=== PATIENT | male | born 1990 | race African-American/Black ===

== ENCOUNTER 2021-06-04 21:19 | Inpatient (IN) | payer MEDICAID, OTHER ==
[~2021-06-04] VITALS: Ht 177.8 cm; Wt 67.5 kg
[2021-06-04] MEDS ORDERED: SODIUM CHLORIDE 0.9% 1,000 ML IV ONE (22:15)
[2021-06-04] MEDS ORDERED: THIAMINE 100mg/ml INJ (200mg/2ml VIAL) IV ONE (22:15)
[2021-06-04 22:31] LABS: Basophils # (auto) 0.1 10 ^3/uL (0-0.2); Eosinophils # (auto) 0.1 10 ^3/uL (0-0.8); Neutrophils # (auto) 2.5 10 ^3/uL (1.6-8.6)
[2021-06-04 22:34] LABS: Basophils % (auto) 1.4 % (0.0-2.0); Eosinophils % (auto) 1.8 % (0.0-7.0); Hematocrit 36.5 % (41.0-53.0); Hemoglobin 11.7 g/dL (13.5-17.5); Lymphocytes # (auto) 1.9 10 ^3/uL (0.4-5.4); Lymphocytes % (auto) 38.6 % (10.0-50.0); Mean Corpuscular Hemoglobin 26.1 pg (28.0-32.0); Mean Corpuscular Volume 81.6 fL (80.0-100.0); Monocytes # (auto) 0.4 10 ^3/uL (0-1.3); Neutrophils % (auto) 50.2 % (37.0-80.0); Nucleated Red Blood Cells % 0.2 %; Red Blood Cells 4.48 10^6/uL (4.5-5.90); White Blood Cell 4.9 10^3/uL (4.4-10.8)
[2021-06-04 22:45] LABS: Red Cell Distribution Width 22.1 % (11.8-14.3)
[2021-06-04 22:47] LABS: Albumin 3.4 g/dL (3.4-5.0); Calcium 8.2 mg/dL (8.5-10.1); Potassium 4.3 mmol/L (3.5-5.1)
[2021-06-04 22:49] LABS: BUN/Creatinine Ratio 11.3
[2021-06-04 22:53] LABS: Bilirubin, Total 0.8 mg/dL (0.2-1.0); Total Protein 7.5 g/dL (6.4-8.2)
[2021-06-05] MEDS ORDERED: IOHEXOL 350 MG/ML 100ML IJ ONE (01:29)
[2021-06-05] MEDS ORDERED: ENOXAPARIN SOD 80 MG/0.8ML SYRINGE SC ONE ×2 (01:30→03:00)
[2021-06-05] MEDS ORDERED: KETOROLAC TROMETH 30 MG/ML 1ML VIAL IV ONE (03:45)
[2021-06-05 05:27] LABS: Urine Bacteria NONE SEEN /hpf (None Seen); Urine Blood Negative /uL (Negative); Urine Hyaline Cast FEW /lpf (0 - 2); Urine Specific Gravity 1.034 (1.001-1.035); Urine WBC 1 /hpf (0 - 3)
[2021-06-05] MEDS ORDERED: ONDANSETRON HCL 4 MG/2 ML VIAL IV PRN (09:30)
[2021-06-05] MEDS ORDERED: DOCUSATE SOD 100 MG CAP PO PRN (09:30)
[2021-06-05] MEDS ORDERED: NITROGLYCERIN 0.4 MG SL TAB SL PRN (09:30)
[2021-06-05] MEDS ORDERED: SODIUM CHLORIDE 0.9% 1,000 ML IV ONE (09:45)
[2021-06-05] MEDS ORDERED: THIAMINE HCL 100 MG TAB PO ONE (09:45)
[2021-06-05] MEDS: MULTIPLE VITAMIN TAB PO SCH (10:00)
[2021-06-05] MEDS: PANTOPRAZOLE 40 MG TAB PO SCH (10:05)
[2021-06-05] MEDS: FOLIC ACID 1 MG TAB PO SCH (10:05)
[2021-06-05] MEDS: LORazepam 2MG/ML-1ML VIAL IV PRN (10:06)
[2021-06-05 11:27] LABS: Eosinophils # (auto) 0.1 10 ^3/uL (0-0.8); Hemoglobin 11.2 g/dL (13.5-17.5); Mean Corpuscular Hemoglobin 25.8 pg (28.0-32.0); Monocytes # (auto) 0.4 10 ^3/uL (0-1.3); Nucleated Red Blood Cells % 0.3 %; Red Blood Cells 4.33 10^6/uL (4.5-5.90); Red Cell Distribution Width 22.5 % (11.8-14.3); White Blood Cell 4.9 10^3/uL (4.4-10.8)
[2021-06-05 11:28] LABS: Basophils # (auto) 0.1 10 ^3/uL (0-0.2); Basophils % (auto) 1.5 % (0.0-2.0); Lymphocytes # (auto) 1.6 10 ^3/uL (0.4-5.4); Lymphocytes % (auto) 31.9 % (10.0-50.0); Monocytes % (auto) 8.7 % (0.0-12.0); Neutrophils # (auto) 2.8 10 ^3/uL (1.6-8.6); Neutrophils % (auto) 56.9 % (37.0-80.0)
[2021-06-05 13:00] VITALS: BP 105/86
[2021-06-05 13:17] VITALS: BP 107/73
[2021-06-05 14:32] LABS: BUN/Creatinine Ratio 12.9; Calcium 8.5 mg/dL (8.5-10.1); Potassium 4.7 mmol/L (3.5-5.1)
[2021-06-05 16:49] VITALS: BP 108/82
[2021-06-05 22:00] VITALS: BP 102/80
[2021-06-06 05:00] VITALS: BP 104/66
[2021-06-06] MEDS: PANTOPRAZOLE 40 MG TAB PO SCH (08:29)
[2021-06-06] MEDS: MULTIPLE VITAMIN TAB PO SCH (08:29)
[2021-06-06] MEDS: FOLIC ACID 1 MG TAB PO SCH (08:29)
[2021-06-06] MEDS: HYDROcodone-ACET 5/325MG TAB PO PRN (08:30)
[2021-06-06] MEDS: LORazepam 2MG/ML-1ML VIAL IV PRN ×3 (08:31→21:29)
[2021-06-06 08:47] VITALS: BP 108/71
[2021-06-06 13:06] VITALS: BP 101/72
[2021-06-06 17:00] VITALS: BP 98/70
[2021-06-06 21:29] VITALS: BP 109/79
[2021-06-06 22:00] VITALS: BP 98/77
[2021-06-07 05:00] VITALS: BP 99/70
[2021-06-07 09:00] VITALS: BP 109/71
[2021-06-07] MEDS: FOLIC ACID 1 MG TAB PO SCH (09:17)
[2021-06-07] MEDS: MULTIPLE VITAMIN TAB PO SCH (09:17)
[2021-06-07] MEDS: PANTOPRAZOLE 40 MG TAB PO SCH (09:17)
[2021-06-07 09:23] LABS: Basophils # (auto) 0.1 10 ^3/uL (0-0.2); Eosinophils # (auto) 0.1 10 ^3/uL (0-0.8); Hemoglobin 11.6 g/dL (13.5-17.5); Monocytes # (auto) 0.4 10 ^3/uL (0-1.3); Neutrophils % (auto) 58.9 % (37.0-80.0); Nucleated Red Blood Cells % 0.5 %; Red Blood Cells 4.45 10^6/uL (4.5-5.90); Red Cell Distribution Width 21.9 % (11.8-14.3)
[2021-06-07 09:25] LABS: Basophils % (auto) 1.3 % (0.0-2.0); Eosinophils % (auto) 1.5 % (0.0-7.0); Hematocrit 36.7 % (41.0-53.0); Lymphocytes # (auto) 1.2 10 ^3/uL (0.4-5.4); Lymphocytes % (auto) 28.8 % (10.0-50.0); Mean Corpuscular Hemoglobin 26.2 pg (28.0-32.0); Mean Corpuscular Hgb Conc. 31.7 g/dL (32.0-36.0); Mean Corpuscular Volume 82.5 fL (80.0-100.0); Monocytes % (auto) 9.5 % (0.0-12.0); Neutrophils # (auto) 2.5 10 ^3/uL (1.6-8.6); White Blood Cell 4.2 10^3/uL (4.4-10.8)
[2021-06-07] MEDS: HYDROcodone-ACET 5/325MG TAB PO PRN (09:35)
[2021-06-07 09:41] LABS: Albumin 3.2 g/dL (3.4-5.0); Calcium 8.7 mg/dL (8.5-10.1); Potassium 4.6 mmol/L (3.5-5.1)
[2021-06-07 09:45] LABS: BUN/Creatinine Ratio 20.3; Bilirubin, Total 0.9 mg/dL (0.2-1.0); Total Protein 7.1 g/dL (6.4-8.2)
[2021-06-07 13:00] VITALS: BP 108/73
[2021-06-07] MEDS ORDERED: chlordiazePOXIDE HCL 5 MG CAP PO PRN (13:15)
[2021-06-07 13:20] LABS: Cholesterol 88 mg/dL (< 200); HDL Cholesterol 36 mg/dL (40-59); LDL Cholesterol 52 mg/dL (< 100); Triglycerides 54 mg/dL (< 150)
[2021-06-07] MEDS: SODIUM CHLORIDE 0.9% 1,000 ML IV SCH ×2 (14:03→21:46)
[2021-06-07] MEDS: chlordiazePOXIDE HCL 5 MG CAP PO PRN (17:34)
[2021-06-07] MEDS: ENOXAPARIN SOD 80 MG/0.8ML SYRINGE SC SCH (17:35)
[2021-06-07 18:15] VITALS: BP 103/75
[2021-06-07 22:00] VITALS: BP 108/72
[2021-06-08] MEDS: ENOXAPARIN SOD 80 MG/0.8ML SYRINGE SC SCH ×2 (04:38→17:10)
[2021-06-08 05:00] VITALS: BP 107/67
[2021-06-08] MEDS: chlordiazePOXIDE HCL 5 MG CAP PO PRN ×3 (05:04→17:11)
[2021-06-08] MEDS: SODIUM CHLORIDE 0.9% 1,000 ML IV SCH ×3 (05:19→21:54)
[2021-06-08 09:00] VITALS: BP 100/65
[2021-06-08] MEDS: FOLIC ACID 1 MG TAB PO SCH (09:26)
[2021-06-08] MEDS: CARVEDILOL 3.125 MG TAB PO SCH ×2 (09:27→21:53)
[2021-06-08] MEDS: MULTIPLE VITAMIN TAB PO SCH (09:27)
[2021-06-08] MEDS: PANTOPRAZOLE 40 MG TAB PO SCH (09:27)
[2021-06-08 13:14] VITALS: BP 99/67
[2021-06-08 17:00] VITALS: BP 105/67
[2021-06-08 21:45] VITALS: BP 98/68
[2021-06-09] MEDS: chlordiazePOXIDE HCL 5 MG CAP PO PRN ×3 (00:24→18:00)
[2021-06-09] MEDS: ENOXAPARIN SOD 80 MG/0.8ML SYRINGE SC SCH ×2 (04:45→21:35)
[2021-06-09] MEDS: SODIUM CHLORIDE 0.9% 1,000 ML IV SCH (05:15)
[2021-06-09 09:00] VITALS: BP 100/61
[2021-06-09] MEDS: FOLIC ACID 1 MG TAB PO SCH (09:23)
[2021-06-09] MEDS: CARVEDILOL 3.125 MG TAB PO SCH ×2 (09:23→21:34)
[2021-06-09] MEDS: MULTIPLE VITAMIN TAB PO SCH (09:24)
[2021-06-09] MEDS: PANTOPRAZOLE 40 MG TAB PO SCH (09:24)
[2021-06-09] MEDS ORDERED: LAMO100T44 PO (12:53)
[2021-06-09] MEDS ORDERED: MEGE40TA4 PO (12:53)
[2021-06-09] MEDS ORDERED: SPIR25TA8 PO (12:53)
[2021-06-09] MEDS ORDERED: FUR20T PO (12:53)
[2021-06-09 13:00] VITALS: BP 105/78
[2021-06-09] MEDS ORDERED: diphenhdrAMINE HCL 25 MG CAP PO PRN (13:00)
[2021-06-09] MEDS: SPIRONOLACTONE 25 MG TAB PO SCH (14:09)
[2021-06-09] MEDS: FUROSEMIDE 20 MG TAB PO SCH (14:13)
[2021-06-09] MEDS: lamoTRIgine 100 MG TAB PO SCH (14:13)
[2021-06-09 17:00] VITALS: BP 115/65
[2021-06-09] MEDS ORDERED: RIVAROXABAN 20 MG TAB PO SCH (18:00)
[2021-06-09] MEDS ORDERED: ENOXAPARIN SOD 100 MG/1 ML SYRINGE SC SCH (18:00)
[2021-06-09] MEDS: HYDROcodone-ACET 5/325MG TAB PO PRN (20:35)
[2021-06-09] MEDS: MEGESTROL ACETATE 20 MG TAB PO SCH (21:34)
[2021-06-09 22:00] VITALS: BP 107/76
[2021-06-10 05:00] VITALS: BP 99/62
[2021-06-10] MEDS: MEGESTROL ACETATE 20 MG TAB PO SCH ×4 (06:12→22:30)
[2021-06-10 09:00] VITALS: BP 112/65
[2021-06-10] MEDS: lamoTRIgine 100 MG TAB PO SCH (10:00)
[2021-06-10] MEDS: CARVEDILOL 3.125 MG TAB PO SCH ×2 (10:31→22:30)
[2021-06-10] MEDS: FOLIC ACID 1 MG TAB PO SCH (10:32)
[2021-06-10] MEDS: MULTIPLE VITAMIN TAB PO SCH (10:32)
[2021-06-10] MEDS: FUROSEMIDE 20 MG TAB PO SCH (10:32)
[2021-06-10] MEDS: SPIRONOLACTONE 25 MG TAB PO SCH (10:32)
[2021-06-10] MEDS: PANTOPRAZOLE 40 MG TAB PO SCH (10:32)
[2021-06-10] MEDS: chlordiazePOXIDE HCL 5 MG CAP PO PRN ×2 (10:33→20:41)
[2021-06-10] MEDS: ENOXAPARIN SOD 80 MG/0.8ML SYRINGE SC SCH ×2 (10:33→22:29)
[2021-06-10 13:00] VITALS: BP 105/77
[2021-06-10] MEDS ORDERED: CARISOPRODOL 350 MG TAB PO PRN (15:00)
[2021-06-10] MEDS: LORazepam 0.5 MG TAB PO PRN (16:20)
[2021-06-10 22:12] VITALS: BP 105/69
[2021-06-10] MEDS: traZODone HCL 50 MG TAB PO SCH (22:31)
[2021-06-11] VITALS (10 sets, daily range): BP systolic 98–113; BP diastolic 57–83
[2021-06-11 05:56] LABS: Basophils # (auto) 0.1 10 ^3/uL (0-0.2); Basophils % (auto) 1.3 % (0.0-2.0); Eosinophils # (auto) 0.1 10 ^3/uL (0-0.8); Eosinophils % (auto) 1.9 % (0.0-7.0); Hemoglobin 10.7 g/dL (13.5-17.5); Lymphocytes # (auto) 1.9 10 ^3/uL (0.4-5.4); Lymphocytes % (auto) 48.5 % (10.0-50.0); Mean Corpuscular Hgb Conc. 32.3 g/dL (32.0-36.0); Mean Corpuscular Volume 80.5 fL (80.0-100.0); Monocytes # (auto) 0.5 10 ^3/uL (0-1.3); Monocytes % (auto) 13.6 % (0.0-12.0); Neutrophils # (auto) 1.4 10 ^3/uL (1.6-8.6); Neutrophils % (auto) 34.7 % (37.0-80.0); Nucleated Red Blood Cells % 0.3 %; White Blood Cell 3.9 10^3/uL (4.4-10.8)
[2021-06-11 05:57] LABS: Red Cell Distribution Width 22.3 % (11.8-14.3)
[2021-06-11] MEDS: MEGESTROL ACETATE 20 MG TAB PO SCH ×4 (06:00→22:04)
[2021-06-11 06:04] LABS: INR 1.35 (0.9-1.15); Partial Thromboplastin Time 36.6 sec (23.6-33.0)
[2021-06-11 06:17] LABS: Potassium 3.6 mmol/L (3.5-5.1)
[2021-06-11 06:30] LABS: Albumin 2.9 g/dL (3.4-5.0); Bilirubin, Total 0.8 mg/dL (0.2-1.0); Calcium 8.3 mg/dL (8.5-10.1); Total Protein 6.1 g/dL (6.4-8.2)
[2021-06-11] MEDS ORDERED: VERAPAMIL 2.5MG/ML INJ 2ML VIAL IV ONE (08:21)
[2021-06-11] MEDS ORDERED: HEPARIN SODIUM (PORCINE) 5000 UNITS/ML 1ML VIAL ONE (08:21)
[2021-06-11] MEDS ORDERED: ANGIOMAX 250 MG VIAL IV ONE (08:21)
[2021-06-11] MEDS ORDERED: fentaNYL CITRATE 100 MCG/2 ML VL ONE ×2 (08:21→09:29)
[2021-06-11] MEDS ORDERED: SODIUM CHL 0.9% 0 ML ONE (08:22)
[2021-06-11] MEDS ORDERED: MIDAZOLAM HCL 2MG/2ML 2ml VIAL (1mg/ml) ONE (08:22)
[2021-06-11] MEDS ORDERED: IODIXANOL 320MG/ML 100ML BTL IV ONE (08:22)
[2021-06-11] MEDS ORDERED: LIDOCAINE 2%HCL (LOCAL ANESTH.) INJ 10ml MDV ONE (08:22)
[2021-06-11] MEDS ORDERED: fentaNYL CITRATE 100 MCG/2 ML VL IV ONE (09:30)
[2021-06-11] MEDS: FOLIC ACID 1 MG TAB PO SCH (10:56)
[2021-06-11] MEDS: PANTOPRAZOLE 40 MG TAB PO SCH (10:56)
[2021-06-11] MEDS: SPIRONOLACTONE 25 MG TAB PO SCH (10:56)
[2021-06-11] MEDS: CARVEDILOL 3.125 MG TAB PO SCH ×2 (10:57→22:04)
[2021-06-11] MEDS: FUROSEMIDE 20 MG TAB PO SCH (10:57)
[2021-06-11] MEDS: MULTIPLE VITAMIN TAB PO SCH (10:57)
[2021-06-11] MEDS: HYDROcodone-ACET 5/325MG TAB PO PRN ×2 (16:48→22:05)
[2021-06-11] MEDS: RIVAROXABAN 20 MG TAB PO SCH (17:33)
[2021-06-11] MEDS: traZODone HCL 50 MG TAB PO SCH (22:04)
[2021-06-12 05:00] VITALS: BP 101/56
[2021-06-12] MEDS: MEGESTROL ACETATE 20 MG TAB PO SCH ×2 (06:47→11:55)
[2021-06-12 09:00] VITALS: BP 108/66
[2021-06-12] MEDS: MULTIPLE VITAMIN TAB PO SCH (09:27)
[2021-06-12] MEDS: PANTOPRAZOLE 40 MG TAB PO SCH (09:28)
[2021-06-12] MEDS: FOLIC ACID 1 MG TAB PO SCH (09:28)
[2021-06-12] MEDS: FUROSEMIDE 20 MG TAB PO SCH (09:29)
[2021-06-12] MEDS: SPIRONOLACTONE 25 MG TAB PO SCH (09:29)
[2021-06-12] MEDS: CARVEDILOL 3.125 MG TAB PO SCH ×2 (09:30→21:36)
[2021-06-12] MEDS: LORazepam 0.5 MG TAB PO PRN (09:31)
[2021-06-12 11:44] LABS: Albumin 3.2 g/dL (3.4-5.0); Calcium 8.6 mg/dL (8.5-10.1)
[2021-06-12 11:48] LABS: BUN/Creatinine Ratio 12.9; Bilirubin, Total 0.7 mg/dL (0.2-1.0); Total Protein 7.3 g/dL (6.4-8.2)
[2021-06-12 12:51] VITALS: BP 105/67
[2021-06-12] MEDS: chlordiazePOXIDE HCL 5 MG CAP PO PRN (12:56)
[2021-06-12 17:00] VITALS: BP 94/65
[2021-06-12] MEDS ORDERED: CAR3125T OR (18:02)
[2021-06-12] MEDS ORDERED: LORA0.5T20 GT (18:02)
[2021-06-12] MEDS ORDERED: CHL10C PO (18:02)
[2021-06-12] MEDS ORDERED: PANT40TA2 PO (18:02)
[2021-06-12] MEDS ORDERED: RIVA20TA PO (18:02)
[2021-06-12] MEDS ORDERED: CARI250T PO (18:02)
[2021-06-12] MEDS: RIVAROXABAN 20 MG TAB PO SCH (18:13)
[2021-06-12] MEDS: traZODone HCL 50 MG TAB PO SCH (21:36)
[2021-06-12] MEDS: MEGESTROL ACET 400MG/10ML ORAL SUSP PO SCH (21:37)
[2021-06-12 22:00] VITALS: BP 91/65
[2021-06-13 05:00] VITALS: BP 101/69
[2021-06-13 09:07] VITALS: BP 104/65
[2021-06-13] MEDS: FOLIC ACID 1 MG TAB PO SCH (10:08)
[2021-06-13] MEDS: MULTIPLE VITAMIN TAB PO SCH (10:08)
[2021-06-13] MEDS: FUROSEMIDE 20 MG TAB PO SCH (10:09)
[2021-06-13] MEDS: PANTOPRAZOLE 40 MG TAB PO SCH (10:09)
[2021-06-13] MEDS: CARVEDILOL 3.125 MG TAB PO SCH ×2 (10:09→21:48)
[2021-06-13] MEDS: SPIRONOLACTONE 25 MG TAB PO SCH (10:09)
[2021-06-13] MEDS: MEGESTROL ACET 400MG/10ML ORAL SUSP PO SCH ×2 (10:10→21:37)
[2021-06-13] MEDS: LORazepam 0.5 MG TAB PO PRN (10:37)
[2021-06-13 13:00] VITALS: BP 101/71
[2021-06-13 17:00] VITALS: BP 96/64
[2021-06-13] MEDS: RIVAROXABAN 20 MG TAB PO SCH (17:40)
[2021-06-13] MEDS: traZODone HCL 50 MG TAB PO SCH (21:35)
[2021-06-13 22:00] VITALS: BP 96/70
[2021-06-14 05:00] VITALS: BP 103/71
[2021-06-14 09:00] VITALS: BP 104/76
[2021-06-14 11:15] VITALS: BP 104/76
[2021-06-14] MEDS: MULTIPLE VITAMIN TAB PO SCH (11:30)
[2021-06-14] MEDS: LORazepam 0.5 MG TAB PO PRN (11:30)
[2021-06-14] MEDS: PANTOPRAZOLE 40 MG TAB PO SCH (11:30)
[2021-06-14] MEDS: FUROSEMIDE 20 MG TAB PO SCH (11:30)
[2021-06-14] MEDS: FOLIC ACID 1 MG TAB PO SCH (11:30)
[2021-06-14] MEDS: CARVEDILOL 3.125 MG TAB PO SCH (11:31)
[2021-06-14] MEDS: SPIRONOLACTONE 25 MG TAB PO SCH (11:31)
[2021-06-14] MEDS: MEGESTROL ACET 400MG/10ML ORAL SUSP PO SCH (11:32)
[2021-06-14 13:00] VITALS: BP 104/74
== END 2021-06-14 15:42 | disposition home or self-care (01) | DRG 192 ==
LOC: EDBD 21:19 → ER 21:19 → TELE 06-05 09:30 → TELE-EAST 06-05 10:36
PROVIDERS: ADMIT Internal Medicine; ATTEND Internal Medicine
PROC: B211YZZ Fluoroscopy of Multiple Coronary Arteries using Other Contrast (ICD-10-PCS; principal; 2021-06-11)
DX: I11.0 Hypertensive heart disease with heart failure (principal); I42.8 Other cardiomyopathies; I24.0 Acute coronary thrombosis not resulting in myocardial infarction; I50.21 Acute systolic (congestive) heart failure; F10.229 Alcohol dependence with intoxication, unspecified; F12.90 Cannabis use, unspecified, uncomplicated; F10.239 Alcohol dependence with withdrawal, unspecified; R79.89 Other specified abnormal findings of blood chemistry; Z20.822 Contact with and (suspected) exposure to COVID-19; I08.1 Rheumatic disorders of both mitral and tricuspid valves; M62.838 Other muscle spasm; G47.00 Insomnia, unspecified; Z79.01 Long term (current) use of anticoagulants; Z79.899 Other long term (current) drug therapy; Z82.49 Family history of ischemic heart disease and other diseases of the circulatory system; Z83.3 Family history of diabetes mellitus; Z91.14 Patient's other noncompliance with medication regimen
CPT/HCPCS: 36415; 71045; 71275; 80048; 80053; 80061; 80320; 81001; 83880; 84484; 85025; 85379; 85610; 85730; 93005; 93306; 93454; 93970; 96361; 96372; 96374; 96375; 99152; 99153; G0378; J1885; J2001; J2250; Q9967

== ENCOUNTER 2021-06-29 18:12 | Inpatient (IN) | payer MEDICAID ==
[~2021-06-29] VITALS: Ht 177.8 cm; Wt 61.6 kg
[~2021-06-29 18:12] MED LIST: CAR3125T OR; CARI250T PO; CHL10C PO; FUR20T PO; LORA0.5T20 GT; MEGE40TA4 PO; PANT40TA2 PO; RIVA20TA PO; SPIR25TA8 PO
[2021-06-29 19:22] LABS: Basophils # (auto) 0.1 10 ^3/uL (0-0.2); Monocytes # (auto) 0.5 10 ^3/uL (0-1.3); White Blood Cell 4.7 10^3/uL (4.4-10.8)
[2021-06-29 19:25] LABS: Basophils % (auto) 1.1 % (0.0-2.0); Eosinophils # (auto) 0 10 ^3/uL (0-0.8); Hematocrit 36.3 % (41.0-53.0); Hemoglobin 11.3 g/dL (13.5-17.5); Lymphocytes % (auto) 43.6 % (10.0-50.0); Mean Corpuscular Hemoglobin 23.5 pg (28.0-32.0); Mean Corpuscular Hgb Conc. 31.3 g/dL (32.0-36.0); Mean Corpuscular Volume 75.2 fL (80.0-100.0); Monocytes % (auto) 11.7 % (0.0-12.0); Neutrophils % (auto) 42.6 % (37.0-80.0); Nucleated Red Blood Cells % 0.4 %; Red Blood Cells 4.82 10^6/uL (4.5-5.90)
[2021-06-29 19:44] LABS: Albumin 3.7 g/dL (3.4-5.0); Calcium 8.8 mg/dL (8.5-10.1); Potassium 4.4 mmol/L (3.5-5.1)
[2021-06-29 19:47] LABS: BUN/Creatinine Ratio 9.6; Bilirubin, Total 0.9 mg/dL (0.2-1.0); Total Protein 7.2 g/dL (6.4-8.2)
[2021-06-30] VITALS (8 sets, daily range): BP systolic 114–121; BP diastolic 82–90
[2021-06-30 00:02] LABS: INR 1.41 (0.9-1.15)
[2021-06-30] MEDS ORDERED: fentaNYL CITRATE 100 MCG/2 ML VL IV ONE (00:45)
[2021-06-30] MEDS ORDERED: FUROSEMIDE 100 MG/10ML VIAL IV ONE (00:45)
[2021-06-30] MEDS ORDERED: ONDANSETRON HCL 4 MG/2 ML VIAL IV ONE (00:45)
[2021-06-30] MEDS ORDERED: DOCUSATE SOD 100 MG CAP PO PRN (01:15)
[2021-06-30] MEDS ORDERED: ACETAMINOPHEN 325 MG TAB PO PRN (01:15)
[2021-06-30] MEDS ORDERED: ONDANSETRON HCL 4 MG/2 ML VIAL IV PRN (01:15)
[2021-06-30] MEDS ORDERED: NITROGLYCERIN 0.4 MG SL TAB SL PRN (01:15)
[2021-06-30] MEDS ORDERED: MORPHINE SULFATE INJECTION 2 MG/ML SYRG IV PRN (01:15)
[2021-06-30] MEDS ORDERED: LORazepam 2MG/ML-1ML VIAL IV PRN (01:15)
[2021-06-30] MEDS ORDERED: TEMAZEPAM 15 MG CAP PO PRN (01:15)
[2021-06-30 03:59] LABS: Urine Bacteria NONE SEEN /hpf (None Seen); Urine Blood Negative /uL (Negative); Urine Mucus FEW (None Seen); Urine Specific Gravity 1.014 (1.001-1.035); Urine WBC <1 /hpf (0 - 3)
[2021-06-30] MEDS: MORPHINE SULFATE INJECTION 2 MG/ML SYRG IV PRN ×4 (04:44→23:42)
[2021-06-30] MEDS: FUROSEMIDE 40 MG/4 ML VIAL IV SCH ×2 (06:00→17:55)
[2021-06-30] MEDS: ASCORBIC ACID 500 MG TAB PO SCH ×2 (09:44→21:27)
[2021-06-30] MEDS: MULTIPLE VITAMIN TAB PO SCH (09:44)
[2021-06-30] MEDS: ZINC SULFATE 220mg CAP or TAB PO SCH (09:44)
[2021-06-30] MEDS: CARVEDILOL 3.125 MG TAB PO SCH (21:28)
[2021-06-30 22:45] LABS: Alcohol, Urine < 3.0 mg/dL (0-10); Amphetamine Screen, Urine NEGATIVE (NEGATIVE); Barbiturate Scree,Urine NEGATIVE (NEGATIVE); Benzodiazephine Screen, Urine POSITIVE (NEGATIVE); Cannabinoid Screen, Urine POSITIVE (NEGATIVE); Cocaine Screen, Urine NEGATIVE (NEGATIVE); Opiate Scree,Urine NEGATIVE (NEGATIVE); Phencyclidine Screen, Urine NEGATIVE (NEGATIVE)
[2021-07-01 05:00] VITALS: BP 118/77
[2021-07-01] MEDS: FUROSEMIDE 40 MG/4 ML VIAL IV SCH ×2 (05:46→17:59)
[2021-07-01] MEDS: MORPHINE SULFATE INJECTION 2 MG/ML SYRG IV PRN ×5 (05:47→21:52)
[2021-07-01] MEDS: MEGESTROL ACETATE 20 MG TAB PO SCH ×2 (07:00→17:00)
[2021-07-01 07:52] LABS: Albumin 3.5 g/dL (3.4-5.0); Calcium 8.8 mg/dL (8.5-10.1)
[2021-07-01 07:57] LABS: BUN/Creatinine Ratio 16.9; Bilirubin, Total 1.1 mg/dL (0.2-1.0); Total Protein 7.2 g/dL (6.4-8.2)
[2021-07-01 08:12] LABS: Basophils # (auto) 0.1 10 ^3/uL (0-0.2); Basophils % (auto) 1.2 % (0.0-2.0); Eosinophils # (auto) 0.1 10 ^3/uL (0-0.8); Eosinophils % (auto) 1.3 % (0.0-7.0); Hematocrit 35.8 % (41.0-53.0); Lymphocytes # (auto) 1.3 10 ^3/uL (0.4-5.4); Lymphocytes % (auto) 30.7 % (10.0-50.0); Mean Corpuscular Hgb Conc. 30.8 g/dL (32.0-36.0); Mean Corpuscular Volume 74.5 fL (80.0-100.0); Monocytes # (auto) 0.5 10 ^3/uL (0-1.3); Monocytes % (auto) 12.7 % (0.0-12.0); Neutrophils # (auto) 2.3 10 ^3/uL (1.6-8.6); Neutrophils % (auto) 54.1 % (37.0-80.0); Nucleated Red Blood Cells % 0.5 %; Red Blood Cells 4.81 10^6/uL (4.5-5.90); Red Cell Distribution Width 25.4 % (11.8-14.3); White Blood Cell 4.3 10^3/uL (4.4-10.8)
[2021-07-01 08:58] VITALS: BP 120/86
[2021-07-01] MEDS: SPIRONOLACTONE 25 MG TAB PO SCH (09:06)
[2021-07-01] MEDS: RIVAROXABAN 20 MG TAB PO SCH (09:06)
[2021-07-01] MEDS: CARVEDILOL 3.125 MG TAB PO SCH ×2 (09:06→21:52)
[2021-07-01] MEDS: MULTIPLE VITAMIN TAB PO SCH (09:07)
[2021-07-01] MEDS: ZINC SULFATE 220mg CAP or TAB PO SCH (09:07)
[2021-07-01] MEDS: ASCORBIC ACID 500 MG TAB PO SCH ×2 (09:07→21:52)
[2021-07-01] MEDS: PANTOPRAZOLE 40 MG TAB PO SCH (09:07)
[2021-07-01] MEDS: LORazepam 0.5 MG TAB GT PRN ×2 (10:37→23:04)
[2021-07-01 13:00] VITALS: BP 114/86
[2021-07-01 17:00] VITALS: BP 92/55
[2021-07-01 22:00] VITALS: BP 115/78
[2021-07-02] MEDS: MORPHINE SULFATE INJECTION 2 MG/ML SYRG IV PRN ×3 (02:03→17:31)
[2021-07-02 05:00] VITALS: BP 116/76
[2021-07-02 09:00] VITALS: BP 120/86
[2021-07-02] MEDS: MEGESTROL ACETATE 20 MG TAB PO SCH ×2 (09:55→17:29)
[2021-07-02] MEDS: MULTIPLE VITAMIN TAB PO SCH (09:56)
[2021-07-02] MEDS: RIVAROXABAN 20 MG TAB PO SCH (09:56)
[2021-07-02] MEDS: PANTOPRAZOLE 40 MG TAB PO SCH (09:56)
[2021-07-02] MEDS: HYDROcodone-ACET 5/325MG TAB PO PRN (09:56)
[2021-07-02] MEDS: CARVEDILOL 3.125 MG TAB PO SCH ×2 (09:56→21:29)
[2021-07-02] MEDS: ZINC SULFATE 220mg CAP or TAB PO SCH (09:57)
[2021-07-02] MEDS: ASCORBIC ACID 500 MG TAB PO SCH ×2 (09:57→21:28)
[2021-07-02] MEDS: SPIRONOLACTONE 25 MG TAB PO SCH (09:57)
[2021-07-02 13:00] VITALS: BP 113/79
[2021-07-02] MEDS ORDERED: LORA0.5T20 GT (14:04)
[2021-07-02] MEDS ORDERED: CHL10C PO (14:04)
[2021-07-02] MEDS ORDERED: MAGNESIUM CITRATE SOLUTION 300 ML BTL PO ONE (14:45)
[2021-07-02 17:00] VITALS: BP 115/78
[2021-07-02 21:30] VITALS: BP 118/74
[2021-07-03] MEDS: HYDROcodone-ACET 5/325MG TAB PO PRN (00:06)
[2021-07-03] MEDS: LORazepam 0.5 MG TAB GT PRN (00:07)
[2021-07-03 05:00] VITALS: BP 119/68
[2021-07-03 06:33] LABS: Potassium 3.9 mmol/L (3.5-5.1)
[2021-07-03] MEDS: MEGESTROL ACETATE 20 MG TAB PO SCH ×2 (07:34→16:47)
[2021-07-03] MEDS: MORPHINE SULFATE INJECTION 2 MG/ML SYRG IV PRN ×2 (08:58→17:02)
[2021-07-03 09:00] VITALS: BP 116/74
[2021-07-03] MEDS: ZINC SULFATE 220mg CAP or TAB PO SCH (09:00)
[2021-07-03] MEDS: SPIRONOLACTONE 25 MG TAB PO SCH (09:01)
[2021-07-03] MEDS: MULTIPLE VITAMIN TAB PO SCH (09:02)
[2021-07-03] MEDS: PANTOPRAZOLE 40 MG TAB PO SCH (09:02)
[2021-07-03] MEDS: ASCORBIC ACID 500 MG TAB PO SCH ×2 (09:02→21:24)
[2021-07-03] MEDS: CARVEDILOL 3.125 MG TAB PO SCH ×2 (09:02→21:23)
[2021-07-03] MEDS: ENOXAPARIN SOD 100 MG/1 ML SYRINGE SC SCH ×2 (09:05→21:24)
[2021-07-03 13:00] VITALS: BP 115/82
[2021-07-03] MEDS: FOLIC ACID 1 MG, MULTIPLE VITAMIN 10 ML, MAGNESIUM SULF SDV 50% 8 MEQ, THIAMINE INJ 100... INJ SCH ×5 (13:20)
[2021-07-03 17:00] VITALS: BP 99/66
[2021-07-03 22:00] VITALS: BP 117/65
[2021-07-04] MEDS: LORazepam 0.5 MG TAB GT PRN (00:22)
[2021-07-04] MEDS: HYDROcodone-ACET 5/325MG TAB PO PRN (00:23)
[2021-07-04 05:00] VITALS: BP 116/49
[2021-07-04] MEDS: MEGESTROL ACETATE 20 MG TAB PO SCH ×2 (06:24→16:13)
[2021-07-04 09:00] VITALS: BP 120/87
[2021-07-04] MEDS: ASCORBIC ACID 500 MG TAB PO SCH (09:19)
[2021-07-04] MEDS: ZINC SULFATE 220mg CAP or TAB PO SCH (09:19)
[2021-07-04] MEDS: PANTOPRAZOLE 40 MG TAB PO SCH (09:19)
[2021-07-04] MEDS: SPIRONOLACTONE 25 MG TAB PO SCH (09:19)
[2021-07-04] MEDS: MULTIPLE VITAMIN TAB PO SCH (09:19)
[2021-07-04] MEDS: ENOXAPARIN SOD 100 MG/1 ML SYRINGE SC SCH ×2 (09:20→09:24)
[2021-07-04] MEDS: MORPHINE SULFATE INJECTION 2 MG/ML SYRG IV PRN ×2 (09:29→18:01)
[2021-07-04] MEDS ORDERED: CARVEDILOL 3.125 MG TAB PO SCH (10:00)
[2021-07-04] MEDS: FOLIC ACID 1 MG, MULTIPLE VITAMIN 10 ML, MAGNESIUM SULF SDV 50% 8 MEQ, THIAMINE INJ 100... INJ SCH ×5 (11:36)
[2021-07-04 13:00] VITALS: BP 122/75
[2021-07-04 17:00] VITALS: BP 122/76
[2021-07-04 18:31] VITALS: BP 117/92
== END 2021-07-04 20:40 | disposition home or self-care (01) | DRG 194 ==
LOC: ER 18:12 → TELE 06-30 01:07 → TELE-CENTR 06-30 04:18
PROVIDERS: ADMIT Internal Medicine; ATTEND Internal Medicine
DX: I11.0 Hypertensive heart disease with heart failure (principal); N17.9 Acute kidney failure, unspecified; I51.3 Intracardiac thrombosis, not elsewhere classified; I42.8 Other cardiomyopathies; R18.8 Other ascites; I50.23 Acute on chronic systolic (congestive) heart failure; F10.10 Alcohol abuse, uncomplicated; F10.129 Alcohol abuse with intoxication, unspecified; F10.139 Alcohol abuse with withdrawal, unspecified; Z20.822 Contact with and (suspected) exposure to COVID-19; Z79.899 Other long term (current) drug therapy; Z82.49 Family history of ischemic heart disease and other diseases of the circulatory system; Z91.14 Patient's other noncompliance with medication regimen
CPT/HCPCS: 36415; 71045; 76705; 80048; 80053; 80307; 81001; 82140; 83605; 83880; 84484; 85025; 85610; 96374; 96375; G0378; J2405

== ENCOUNTER 2021-07-13 19:44 | Emergency (ER) | payer MEDICAID ==
[~2021-07-13] VITALS: Ht 177.8 cm; Wt 63.5 kg
[2021-07-13 22:43] LABS: Eosinophils # (auto) 0.1 10 ^3/uL (0-0.8); Eosinophils % (auto) 1.1 % (0.0-7.0); Nucleated Red Blood Cells % 0.2 %
[2021-07-13 22:45] LABS: Basophils # (auto) 0 10 ^3/uL (0-0.2); Basophils % (auto) 0.9 % (0.0-2.0); Hematocrit 37.5 % (41.0-53.0); Lymphocytes # (auto) 2.3 10 ^3/uL (0.4-5.4); Lymphocytes % (auto) 44.7 % (10.0-50.0); Mean Corpuscular Hemoglobin 22.6 pg (28.0-32.0); Mean Corpuscular Volume 70.7 fL (80.0-100.0); Monocytes # (auto) 0.5 10 ^3/uL (0-1.3); Monocytes % (auto) 8.6 % (0.0-12.0); Neutrophils # (auto) 2.3 10 ^3/uL (1.6-8.6); Neutrophils % (auto) 44.7 % (37.0-80.0); Red Blood Cells 5.31 10^6/uL (4.5-5.90); White Blood Cell 5.2 10^3/uL (4.4-10.8)
[2021-07-13 22:59] LABS: Red Cell Distribution Width 25.3 % (11.8-14.3)
[2021-07-13 23:04] LABS: Albumin 3.9 g/dL (3.4-5.0); Calcium 9.1 mg/dL (8.5-10.1); Potassium 3.9 mmol/L (3.5-5.1)
[2021-07-13 23:06] LABS: BUN/Creatinine Ratio 18.3
[2021-07-13 23:10] LABS: Bilirubin, Total 0.8 mg/dL (0.2-1.0)
[2021-07-13 23:45] VITALS: BP 121/72
== END 2021-07-14 00:04 | disposition home or self-care (01) ==
LOC: ER 19:49
DX: I11.0 Hypertensive heart disease with heart failure (principal); I50.9 Heart failure, unspecified; F10.10 Alcohol abuse, uncomplicated; I42.9 Cardiomyopathy, unspecified; R51.9 Headache, unspecified
CPT/HCPCS: 36415; 71045; 80053; 83880; 84484; 85025